=== PATIENT | male | born 1935 | race Caucasian/White ===

== ENCOUNTER 2016-11-22 05:48 | Day surgery (SDC) | payer MEDICARE ==
--- NOTE | ~2016-11-22 | EGD ---
EGD REPORT [facility] [address] [address] NAME: ARJUN BOCANEGRA : 39 STATUS : REG [facility]#: [id number] AGE: 81 ADM/REG DATE : 11/22/16 MR#: [id number] REPORT SERV DATE: 11/22/16 DICTATED BY: MINA BYERS DATE: 11/22/16 REPORT STATUS : Draft [facility]ANS[facility]ED BY: [facility] DATE: 11/22/16 Endoscopy Center Patient Name: Arjun Bocanegra Date of : 1935 Attending MD: MINA BEYRS MD Procedure Date No Time: 11/22/2016 Procedure: Colonoscopy Indications: High risk colon cancer surveillance: Personal history of colonic polyps Referring MD: Sudhir Chrisotpher Medicines: Monitored Anesthesia Care Complications: No immediate complications. Procedure: Pre-Anesthesia Assessment: - ASA Grade Assessment: III - A patient with severe systemic disease. After I obtained informed consent, the scope was passed under direct vision. Throughout the procedure, the patient's blood pressure, pulse, and oxygen saturations were monitored continuously. The CF [id number] was introduced through the anus and advanced to the cecum, identified by appendiceal orifice and ileocecal valve. The colonoscopy was performed without difficulty. The patient tolerated the procedure well. The quality of the bowel preparation was adequate. PROCEDURE TIME WAS 34 MINUTES. Findings: The digital rectal exam was normal. Pertinent negatives include no palpable rectal lesions. Four sessile polyps were found in the ascending colon. The polyps were 4 to 5 mm in size. These polyps were removed with a cold biopsy forceps. Resection and retrieval were complete. Five sessile polyps were found in the ascending colon. The polyps were 6 to 8 mm in size. These polyps were removed with a cold snare. Resection and retrieval were complete. A sessile polyp was found in the cecum. The polyp was 4 mm in size. The polyp was removed with a cold biopsy forceps. Resection and retrieval were complete. Four sessile polyps were found at the hepatic flexure. The polyps were 3 to 5 mm in size. These polyps were removed with a cold biopsy forceps. Resection and retrieval were complete. A sessile polyp was found at the hepatic flexure. The polyp was 8 mm in size. The polyp was removed with a cold snare. Resection and retrieval were complete. Two sessile polyps were found in the transverse colon. The polyps were 3 EGD REPORT [address] [address] NAME: ARJUN BOCANEGRA : 39 STATUS : REG [facility] PAT#: [id number] AGE: 81 ADM/REG DATE : 11/22/16 MR#: [id number] REPORT SERV DATE: 11/22/16 DICTATED BY: MINA BYERS DATE: 11/22/16 REPORT STATUS : Draft TRANSCRIBED BY: [employer] DATE: 11/22/16 to 4 mm in size. These polyps were removed with a cold biopsy forceps. Resection and retrieval were complete. Hemorrhoids were found during retroflexion and were moderate. Diverticula were found in the sigmoid colon. Impression: - Four 4 to 5 mm polyps in the ascending colon. Resected and retrieved. - Five 6 to 8 mm polyps in the ascending colon. Resected and retrieved. - One 4 mm polyp in the cecum. Resected and retrieved. - Four 3 to 5 mm polyps at the hepatic flexure. Resected and retrieved. - One 8 mm polyp at the hepatic flexure. Resected and retrieved. - Two 3 to 4 mm polyps in the transverse colon. Resected and retrieved. - Hemorrhoids. - Mild diverticulosis in the sigmoid colon. There was no evidence of diverticular bleeding. Recommendation: - Patient has a contact number available for emergencies. The signs and symptoms of potential delayed complications were discussed with the patient. Return to normal activities tomorrow. Written discharge instructions were provided to the patient. - Regular diet. - Continue present medications. - Repeat colonoscopy for surveillance based on pathology results. - Return to GI office in 1 year. Procedure Code(s): --- Professional --- 58949, Colonoscopy, flexible, proximal to splenic flexure; with removal of tumor(s), polyp(s), or other lesion(s) by snare technique 84701, 59, Colonoscopy, flexible, proximal to splenic flexure; with biopsy, single or multiple Diagnosis Code(s): --- Professional --- D12.3, Benign neoplasm of transverse colon D12.0, Benign neoplasm of cecum D12.2, Benign neoplasm of ascending colon K64.9, Unspecified hemorrhoids Z86.010, Personal history of colonic polyps CPT copyright 2013 [employer]. All rights reserved. EGD REPORT [facility] [address] [address] NAME: ARJUN BOCANEGRA : 39 STATUS : REG [facility] PAT#: [id number] AGE: 81 ADM/REG DATE : 11/22/16 MR#: [id number] REPORT SERV DATE: 11/22/16 DICTATED BY: MINA BYERS DATE: 11/22/16 REPORT STATUS : Draft TRANSCRIBED BY: [employer] DATE: 11/22/16 The codes documented in this report are preliminary and upon business initiatives manager review may be revised to meet current compliance requirements. MINA BYERS MD 11/22/2016 7:58 AM This report has been signed electronically. Number of Addenda: 0 Note Initiated On: 11/22/2016 7:09 AM Scope Withdrawal Time 0 hours 23 minutes 6 seconds [address] [address]
[~2016-11-22 05:48] MED LIST: ASAB PO; BENICAR HCT1 TA2 PO; BUM1 PO; BUM5 PO; CALTRAT600 PO; CENTRUM TAB1 TAB PO; COQ10100 MG OR; COZAAR100 MG PO; PLAQ200B PO; PRILO PO; SPIRO25 PO; VITC500 PO; [UNRECOGNIZED DRUG - OTHER]
== END 2016-11-22 23:59 | disposition home or self-care (01) ==
LOC: DMU 05:48
PROVIDERS: Internal Medicine Gastroenterology
PROC: 0DBL8ZX Excision of Transverse Colon, Via Natural or Artificial Opening Endoscopic, Diagnostic (ICD-10-PCS; 2016-11-22)
PROC: 0DBK8ZX Excision of Ascending Colon, Via Natural or Artificial Opening Endoscopic, Diagnostic (ICD-10-PCS; principal; 2016-11-22 07:30)
PROC: 0DBH8ZX Excision of Cecum, Via Natural or Artificial Opening Endoscopic, Diagnostic (ICD-10-PCS; 2016-11-22 07:30)
DX: Z12.11 Encounter for screening for malignant neoplasm of colon (principal); D12.2 Benign neoplasm of ascending colon; D12.0 Benign neoplasm of cecum; D12.3 Benign neoplasm of transverse colon; K64.9 Unspecified hemorrhoids; K21.9 Gastro-esophageal reflux disease without esophagitis; I35.0 Nonrheumatic aortic (valve) stenosis; Z86.010 Personal history of colon polyps; Z95.0 Presence of cardiac pacemaker; Z88.8 Allergy status to other drugs, medicaments and biological substances; Z79.82 Long term (current) use of aspirin; Z79.899 Other long term (current) drug therapy; Z98.41 Cataract extraction status, right eye; Z98.42 Cataract extraction status, left eye; Z98.890 Other specified postprocedural states
CPT/HCPCS: 88305